=== PATIENT | male | born 1955 | race Caucasian/White ===

== ENCOUNTER 2018-09-11 12:39 | Inpatient (IN) | payer OTHER, MEDICAID ==
[~2018-09-11] VITALS: Ht 182.9 cm; Wt 77.0 kg
[~2018-09-11 12:39] MED LIST: CLON.5 PO; DULO30CA2 PO; MIRT15 PO
[2018-09-11 14:01] LABS: BASOPHILS % (AUTO) 0.6 % (0.0-2.0); EOSINOPHILS % (AUTO) 2.3 % (1.0-6.0); HEMOGLOBIN 15.8 g/dL (13.5-17.5); LYMPHOCYTES # (AUTO) 1.9 K/uL (1.0-4.8); LYMPHOCYTES % (AUTO) 30.9 % (22.0-44.0); MEAN CORPUSCULAR HEMOGLOBIN 34.2 pg (26.0-34.0); MEAN CORPUSCULAR HGB CONC 33.6 G/dL (31.0-37.0); MEAN CORPUSCULAR VOLUME 102 fL (80-100); MONOCYTES # (AUTO) 0.6 K/uL (0.1-1.0); NEUTROPHILS # (AUTO) 3.5 K/uL (1.8-7.7); NEUTROPHILS % (AUTO) 56.2 % (40.0-70.0); PLATELET COUNT (AUTO) 197 K/uL (150-450); RED BLOOD CELL COUNT(AUTO) 4.62 MIL/uL (4.50-5.90)
[2018-09-11] MEDS ORDERED: LORazepam 1 MG TABLET PO ONE ×2 (14:15→20:00)
[2018-09-11 14:24] LABS: ANION GAP 13 mmol/L (8-16); CALCIUM, TOTAL 8.5 mg/dL (8.8-10.5); CARBON DIOXIDE 28 mmol/L (22-29); CHLORIDE 103 mmol/L (98-107); GLOMERULAR FILTR. RATE CALC > 60 mL/min (>60); GLUCOSE,RANDOM 76 mg/dL (70-110); POTASSIUM 3.5 mmol/L (3.5-5.1); SODIUM SERUM 144 mmol/L (136-145); UREA NITROGEN, BLOOD 11 mg/dL (7-18)
[2018-09-11 14:25] LABS: ALANINE AMINOTRANSFERASE 27 U/L (12-78); ALBUMIN 3.9 g/dL (3.4-5.0); ALKALINE PHOSPHATASE 67 U/L (46-116); ASPARTATE AMINOTRANSFERASE 39 U/L (15-37); BILIRUBIN,TOTAL 0.5 mg/dL (0.1-1.0); TOTAL PROTEIN, SERUM 7.9 g/dL (6.4-8.2)
[2018-09-11 17:02] LABS: PLATELET MORPHOLOGY COMMENT LARGE PLTS PRESENT
[2018-09-11 17:17] LABS: AMPHET/METH SCREEN,URINE NEGATIVE (NEGATIVE); BARBITURATE SCREEN, URINE NEGATIVE (NEGATIVE); BENZODIAZEPINES SCREEN,URINE NEGATIVE (NEGATIVE); CANNABINOID SCREEN,URINE NEGATIVE (NEGATIVE); COCAINE SCREEN,URINE NEGATIVE (NEGATIVE); METHADONE SCREEN, URINE NEGATIVE (NEGATIVE); OPIATE SCREEN,URINE NEGATIVE (NEGATIVE)
[2018-09-11 17:19] LABS: PHENCYCLIDINE SCREEN,URINE NEGATIVE (NEGATIVE)
[2018-09-11] MEDS ORDERED: GuaiFENesin/D-METHORPHAN [SUGAR-FREE] 200-20MG/10 ML SYRUP UDCUP PO PRN (20:15)
[2018-09-11] MEDS ORDERED: HydrOXYzine PAMOATE 50 MG CAPSULE PO PRN (20:15)
[2018-09-11] MEDS ORDERED: LOPERAMIDE HCL 2 MG CAPSULE PO PRN (20:15)
[2018-09-11] MEDS ORDERED: LORazepam 2 MG TABLET PO PRN (20:15)
[2018-09-11] MEDS ORDERED: CYANOCOBALAMIN 1,000 MCG/ML VIAL IM ONE (23:00)
[2018-09-12] VITALS (12 sets, daily range): BP systolic 114–142; BP diastolic 61–94
[2018-09-12] MEDS ORDERED: GuaiFENesin/D-METHORPHAN [SUGAR-FREE] 200-20MG/10 ML SYRUP UDCUP PO PRN (06:45)
[2018-09-12] MEDS ORDERED: LOPERAMIDE HCL 2 MG CAPSULE PO PRN (06:45)
[2018-09-12] MEDS ORDERED: PETROLATUM,WHITE 71 GM JELLY TP PRN (06:45)
[2018-09-12] MEDS ORDERED: MAG HYDROX/AL HYDROX/SIMETH ES 30 ML SUSPENSION UDCUP PO PRN (06:45)
[2018-09-12] MEDS ORDERED: ACETAMINOPHEN 325 MG TABLET PO PRN (06:45)
[2018-09-12] MEDS ORDERED: MAGNESIUM HYDROXIDE SUSPENSION 30 ML UDCUP PO PRN (06:45)
[2018-09-12] MEDS ORDERED: DOCUSATE SODIUM 100 MG CAPSULE PO PRN (06:45)
[2018-09-12] MEDS ORDERED: CloNIDine HCL 0.1 MG TABLET PO PRN (06:45)
[2018-09-12] MEDS ORDERED: LORazepam 2 MG TABLET PO PRN (07:00)
[2018-09-12 07:06] LABS: CHOL/HDL RATIO 1.4 (4.2-7.3)
[2018-09-12] MEDS: FOLIC ACID 1 MG TABLET PO SCH (08:42)
[2018-09-12] MEDS: THIAMINE HCL 100 MG TABLET PO SCH ×2 (08:42→16:12)
[2018-09-12] MEDS: MULTIVITAMINS WITH MINERALS, THERAPEUTIC TABLET PO SCH (08:44)
[2018-09-12] MEDS: LORazepam 2 MG TABLET PO SCH ×4 (08:44→20:34)
[2018-09-13] VITALS (11 sets, daily range): BP systolic 120–139; BP diastolic 71–99
[2018-09-13] MEDS: THIAMINE HCL 100 MG TABLET PO SCH ×2 (09:06→16:36)
[2018-09-13] MEDS: FOLIC ACID 1 MG TABLET PO SCH (09:06)
[2018-09-13] MEDS: LORazepam 2 MG TABLET PO SCH ×4 (09:06→20:13)
[2018-09-13] MEDS: DULoxetine HCL 20 MG CAPSULE PO SCH (09:06)
[2018-09-13] MEDS: MULTIVITAMINS WITH MINERALS, THERAPEUTIC TABLET PO SCH (09:06)
[2018-09-13] MEDS: ONDANSETRON HCL 4 MG TABLET PO PRN (12:28)
[2018-09-13] MEDS: NICOTINE 14 MG/24 HOUR PATCH TD PRN (16:42)
[2018-09-14 06:49] VITALS: BP 125/87
[2018-09-14] MEDS ORDERED: LORazepam 1 MG TABLET PO PRN (07:00)
[2018-09-14 08:00] VITALS: BP 118/95
[2018-09-14] MEDS: LORazepam 1 MG TABLET PO SCH ×4 (08:41→21:30)
[2018-09-14] MEDS: FOLIC ACID 1 MG TABLET PO SCH (08:42)
[2018-09-14] MEDS: THIAMINE HCL 100 MG TABLET PO SCH ×2 (08:42→17:07)
[2018-09-14] MEDS: MULTIVITAMINS WITH MINERALS, THERAPEUTIC TABLET PO SCH (08:42)
[2018-09-14] MEDS: DULoxetine HCL 20 MG CAPSULE PO SCH (08:42)
[2018-09-14 09:00] VITALS: BP 120/77
[2018-09-14 17:00] VITALS: BP 142/98
[2018-09-15 06:22] VITALS: BP 104/60
[2018-09-15 08:00] VITALS: BP 116/65
[2018-09-15] MEDS: MULTIVITAMINS WITH MINERALS, THERAPEUTIC TABLET PO SCH (08:49)
[2018-09-15] MEDS: DULoxetine HCL 20 MG CAPSULE PO SCH (08:49)
[2018-09-15] MEDS: FOLIC ACID 1 MG TABLET PO SCH (08:49)
[2018-09-15] MEDS: LORazepam 1 MG TABLET PO PRN (08:49)
[2018-09-15] MEDS: THIAMINE HCL 100 MG TABLET PO SCH ×2 (08:49→16:15)
[2018-09-15 09:00] VITALS: BP 140/62
[2018-09-15] MEDS: NICOTINE 14 MG/24 HOUR PATCH TD PRN (09:26)
[2018-09-15 16:43] VITALS: BP 147/90
[2018-09-15 16:45] VITALS: BP 147/90
[2018-09-16] MEDS: LORazepam 1 MG TABLET PO PRN (00:47)
[2018-09-16 08:02] VITALS: BP 148/99
[2018-09-16 08:03] VITALS: BP 148/99
[2018-09-16] MEDS: MULTIVITAMINS WITH MINERALS, THERAPEUTIC TABLET PO SCH (08:39)
[2018-09-16] MEDS: FOLIC ACID 1 MG TABLET PO SCH (08:39)
[2018-09-16] MEDS: THIAMINE HCL 100 MG TABLET PO SCH ×2 (08:39→16:33)
[2018-09-16] MEDS: DULoxetine HCL 20 MG CAPSULE PO SCH (08:39)
[2018-09-16 08:44] VITALS: BP 148/99
[2018-09-16] MEDS: ONDANSETRON HCL 4 MG TABLET PO PRN (08:44)
[2018-09-16] MEDS: IBUPROFEN 400 MG TABLET PO PRN (08:44)
[2018-09-16] MEDS: NICOTINE 14 MG/24 HOUR PATCH TD PRN (08:45)
[2018-09-16] MEDS: ALBUTEROL SULFATE HFA 90 MCG/PUFF 8 GM INHALER IH PRN (09:23)
[2018-09-16] MEDS: CARBAMIDE PEROXIDE 6.5% 15 ML OTIC SOLUTION AD SCH (16:36)
[2018-09-16] MEDS: LORazepam 2 MG TABLET PO PRN (17:18)
[2018-09-16 18:48] VITALS: BP 127/83
[2018-09-16 18:50] VITALS: BP 127/83
[2018-09-17] MEDS: LORazepam 2 MG TABLET PO PRN ×3 (02:11→22:35)
[2018-09-17] MEDS: MULTIVITAMINS WITH MINERALS, THERAPEUTIC TABLET PO SCH (08:31)
[2018-09-17] MEDS: THIAMINE HCL 100 MG TABLET PO SCH ×2 (08:32→16:07)
[2018-09-17] MEDS: FOLIC ACID 1 MG TABLET PO SCH (08:33)
[2018-09-17] MEDS: DULoxetine HCL 20 MG CAPSULE PO SCH (08:33)
[2018-09-17] MEDS: CARBAMIDE PEROXIDE 6.5% 15 ML OTIC SOLUTION AD SCH ×2 (08:38→17:12)
[2018-09-17 11:45] VITALS: BP 133/98
[2018-09-17 16:56] VITALS: BP 130/90
[2018-09-18] MEDS: DULoxetine HCL 20 MG CAPSULE PO SCH (08:58)
[2018-09-18] MEDS: FOLIC ACID 1 MG TABLET PO SCH (08:58)
[2018-09-18] MEDS: THIAMINE HCL 100 MG TABLET PO SCH ×2 (08:58→16:08)
[2018-09-18] MEDS: MULTIVITAMINS WITH MINERALS, THERAPEUTIC TABLET PO SCH (08:58)
[2018-09-18] MEDS: LORazepam 2 MG TABLET PO PRN ×2 (09:00→16:08)
[2018-09-18] MEDS: CARBAMIDE PEROXIDE 6.5% 15 ML OTIC SOLUTION AD SCH ×2 (09:02→16:10)
[2018-09-18 10:44] VITALS: BP 125/79
[2018-09-18 18:09] VITALS: BP 131/89
[2018-09-19 02:00] VITALS: BP 134/86
[2018-09-19] MEDS: LORazepam 2 MG TABLET PO PRN (02:02)
[2018-09-19] MEDS: IBUPROFEN 400 MG TABLET PO PRN ×2 (02:02→20:23)
[2018-09-19] MEDS: NICOTINE 14 MG/24 HOUR PATCH TD PRN (06:56)
[2018-09-19] MEDS: MULTIVITAMINS WITH MINERALS, THERAPEUTIC TABLET PO SCH (08:25)
[2018-09-19] MEDS: THIAMINE HCL 100 MG TABLET PO SCH ×2 (08:25→16:15)
[2018-09-19] MEDS: FOLIC ACID 1 MG TABLET PO SCH (08:25)
[2018-09-19] MEDS: DULoxetine HCL 20 MG CAPSULE PO SCH (08:25)
[2018-09-19] MEDS: CARBAMIDE PEROXIDE 6.5% 15 ML OTIC SOLUTION AD SCH ×2 (09:00→16:19)
[2018-09-19 11:28] VITALS: BP 132/67
[2018-09-19 16:20] VITALS: BP 151/85
[2018-09-19] MEDS: ALBUTEROL SULFATE HFA 90 MCG/PUFF 8 GM INHALER IH PRN (16:21)
[2018-09-19 20:23] VITALS: BP 134/82
[2018-09-20 02:15] VITALS: BP 129/98
[2018-09-20] MEDS: LORazepam 2 MG TABLET PO PRN ×4 (02:16→22:24)
[2018-09-20] MEDS: DULoxetine HCL 20 MG CAPSULE PO SCH (08:08)
[2018-09-20] MEDS: FOLIC ACID 1 MG TABLET PO SCH (08:08)
[2018-09-20] MEDS: THIAMINE HCL 100 MG TABLET PO SCH ×2 (08:08→16:03)
[2018-09-20] MEDS: MULTIVITAMINS WITH MINERALS, THERAPEUTIC TABLET PO SCH (08:08)
[2018-09-20 09:08] VITALS: BP 152/95
[2018-09-20] MEDS: CARBAMIDE PEROXIDE 6.5% 15 ML OTIC SOLUTION AD SCH (09:14)
[2018-09-20 16:04] VITALS: BP 132/70
[2018-09-20] MEDS: IBUPROFEN 400 MG TABLET PO PRN (16:04)
[2018-09-20 17:04] VITALS: BP 135/74
[2018-09-21] MEDS: MULTIVITAMINS WITH MINERALS, THERAPEUTIC TABLET PO SCH (08:42)
[2018-09-21] MEDS: THIAMINE HCL 100 MG TABLET PO SCH ×2 (08:42→16:01)
[2018-09-21] MEDS: FOLIC ACID 1 MG TABLET PO SCH (08:42)
[2018-09-21] MEDS: DULoxetine HCL 20 MG CAPSULE PO SCH (08:42)
[2018-09-21] MEDS: LORazepam 2 MG TABLET PO PRN ×2 (08:47→16:00)
[2018-09-21 10:46] VITALS: BP 135/95
[2018-09-21] MEDS: IBUPROFEN 400 MG TABLET PO PRN (16:00)
[2018-09-21 16:02] VITALS: BP 142/101
[2018-09-21] MEDS ORDERED: DULO20CA17 PO (18:02)
[2018-09-21] MEDS ORDERED: MULT1CAP36 PO (18:06)
[2018-09-21] MEDS ORDERED: ALBU8HFA IH (18:09)
== END 2018-09-21 18:30 | disposition home or self-care (01) | DRG 885 ==
LOC: EMS 12:44 → 3EX 22:25
PROVIDERS: ADMIT Psychiatry & Neurology Psychiatry; ATTEND Psychiatry & Neurology Psychiatry
DX: F33.2 Major depressive disorder, recurrent severe without psychotic features (principal); R45.851 Suicidal ideations; F10.20 Alcohol dependence, uncomplicated; F17.200 Nicotine dependence, unspecified, uncomplicated; Z71.6 Tobacco abuse counseling; F41.9 Anxiety disorder, unspecified; G47.33 Obstructive sleep apnea (adult) (pediatric); M19.90 Unspecified osteoarthritis, unspecified site; Z59.0 Homelessness; Z81.8 Family history of other mental and behavioral disorders; Z87.442 Personal history of urinary calculi; Z91.14 Patient's other noncompliance with medication regimen; Z23 Encounter for immunization; Z79.899 Other long term (current) drug therapy
CPT/HCPCS: 80074; 90686; G0378; G0480; J3420; J3535; Q0162

== ENCOUNTER 2019-03-02 19:43 | Emergency (ER) | payer OTHER, MEDICAID ==
[~2019-03-02] VITALS: Ht 182.9 cm; Wt 81.8 kg
[~2019-03-02 19:43] MED LIST changes: -CLON.5 PO; +DULO20CA18 PO; -DULO30CA2 PO; -MIRT15 PO; +MULT1CAP36 PO
[2019-03-02 23:07] LABS: AMPHET/METH SCREEN,URINE POSITIVE (NEGATIVE); BARBITURATE SCREEN, URINE NEGATIVE (NEGATIVE); BENZODIAZEPINES SCREEN,URINE NEGATIVE (NEGATIVE); CANNABINOID SCREEN,URINE NEGATIVE (NEGATIVE); COCAINE SCREEN,URINE NEGATIVE (NEGATIVE); METHADONE SCREEN, URINE NEGATIVE (NEGATIVE); OPIATE SCREEN,URINE NEGATIVE (NEGATIVE)
[2019-03-02 23:11] LABS: PHENCYCLIDINE SCREEN,URINE NEGATIVE (NEGATIVE)
[2019-03-02 23:28] LABS: CALCIUM, TOTAL 8.1 mg/dL (8.8-10.5); CARBON DIOXIDE 26 mmol/L (22-29); CHLORIDE 103 mmol/L (98-107); CREATININE 0.72 mg/dL (0.60-1.30); GLOMERULAR FILTR. RATE CALC > 60 mL/min (>60); GLUCOSE,RANDOM 85 mg/dL (70-110); UREA NITROGEN, BLOOD 12 mg/dL (7-18)
[2019-03-02 23:31] LABS: BASOPHILS % (AUTO) 1.4 % (0.0-2.0); EOSINOPHILS % (AUTO) 3.2 % (1.0-6.0); HEMATOCRIT 43.9 % (41-53); HEMOGLOBIN 14.6 g/dL (13.5-17.5); LYMPHOCYTES # (AUTO) 2.1 K/uL (1.0-4.8); LYMPHOCYTES % (AUTO) 51.4 % (22.0-44.0); MEAN CORPUSCULAR HEMOGLOBIN 33.5 pg (26.0-34.0); MEAN CORPUSCULAR HGB CONC 33.3 G/dL (31.0-37.0); MEAN CORPUSCULAR VOLUME 101 fL (80-100); MONOCYTES # (AUTO) 0.6 K/uL (0.1-1.0); MONOCYTES % (AUTO) 15.4 % (2.0-9.0); NEUTROPHILS # (AUTO) 1.2 K/uL (1.8-7.7); NEUTROPHILS % (AUTO) 28.6 % (40.0-70.0); PLATELET COUNT (AUTO) 141 K/uL (150-450); RED BLOOD CELL COUNT(AUTO) 4.36 MIL/uL (4.50-5.90); RED CELL DISTRIBUTION WIDTH 13.9 % (11.5-14.5)
[2019-03-02 23:35] LABS: ALANINE AMINOTRANSFERASE 21 U/L (12-78); ALBUMIN 3.2 g/dL (3.4-5.0); ALKALINE PHOSPHATASE 65 U/L (46-116); ANION GAP 11 mmol/L (8-16); ASPARTATE AMINOTRANSFERASE 42 U/L (15-37); BILIRUBIN,TOTAL 0.3 mg/dL (0.1-1.0); SODIUM SERUM 140 mmol/L (136-145); TOTAL PROTEIN, SERUM 6.7 g/dL (6.4-8.2)
[2019-03-03 00:30] LABS: PLATELET MORPHOLOGY COMMENT LARGE PLTS PRESENT
[2019-03-03 04:15] VITALS: BP 119/66
== END 2019-03-03 05:24 | disposition home or self-care (01) ==
LOC: EMS 19:45
DX: F32.9 Major depressive disorder, single episode, unspecified (principal); F19.20 Other psychoactive substance dependence, uncomplicated; F10.10 Alcohol abuse, uncomplicated; F41.9 Anxiety disorder, unspecified; M19.90 Unspecified osteoarthritis, unspecified site; F17.210 Nicotine dependence, cigarettes, uncomplicated; Z59.0 Homelessness; Z88.8 Allergy status to other drugs, medicaments and biological substances; Z88.5 Allergy status to narcotic agent; Y90.7 Blood alcohol level of 200-239 mg/100 ml
CPT/HCPCS: 36415; 80053; 80307; 85025; 99285; G0480

== ENCOUNTER 2020-09-15 20:28 | Inpatient (IN) | payer MEDICAID, OTHER ==
[~2020-09-15] VITALS: Ht 182.9 cm; Wt 83.5 kg
[2020-09-15] MEDS ORDERED: PERTUSS(ACELL),DIPH,TET VAC/PF 0.5 ML VIAL IM ONE (22:30)
[2020-09-15 23:31] LABS: BASOPHILS % (AUTO) 0.7 % (0.0-2.0); EOSINOPHILS % (AUTO) 4.2 % (1.0-6.0); HEMOGLOBIN 11.7 g/dL (13.5-17.5); LYMPHOCYTES # (AUTO) 1.6 K/uL (1.0-4.8); LYMPHOCYTES % (AUTO) 29.7 % (22.0-44.0); MEAN CORPUSCULAR HEMOGLOBIN 35.6 pg (26.0-34.0); MEAN CORPUSCULAR HGB CONC 33.3 G/dL (31.0-37.0); MEAN CORPUSCULAR VOLUME 107 fL (80-100); MONOCYTES # (AUTO) 0.6 K/uL (0.1-1.0); MONOCYTES % (AUTO) 10.7 % (2.0-9.0); NEUTROPHILS # (AUTO) 2.9 K/uL (1.8-7.7); NEUTROPHILS % (AUTO) 54.7 % (40.0-70.0); PLATELET COUNT (AUTO) 161 K/uL (150-450); RED BLOOD CELL COUNT(AUTO) 3.28 MIL/uL (4.50-5.90); RED CELL DISTRIBUTION WIDTH 13.9 % (11.5-14.5)
[2020-09-15 23:44] LABS: ANION GAP 5 mmol/L (8-16); CALCIUM, TOTAL 8.5 mg/dL (8.8-10.5); CARBON DIOXIDE 31 mmol/L (22-29); CHLORIDE 108 mmol/L (98-107); CREATININE 0.74 mg/dL (0.60-1.30); GLOMERULAR FILTR. RATE CALC > 60 mL/min (>60); GLUCOSE,RANDOM 87 mg/dL (70-110); POTASSIUM 3.9 mmol/L (3.5-5.1); SODIUM SERUM 144 mmol/L (136-145); UREA NITROGEN, BLOOD 20 mg/dL (7-18)
[2020-09-15 23:50] LABS: ALANINE AMINOTRANSFERASE 35 U/L (12-78); ALBUMIN 2.6 g/dL (3.4-5.0); ALKALINE PHOSPHATASE 69 U/L (46-116); ASPARTATE AMINOTRANSFERASE 61 U/L (15-37); BILIRUBIN,TOTAL 0.3 mg/dL (0.1-1.0); CREATINE KINASE, TOTAL ONLY 53 U/L (39-308)
[2020-09-16] VITALS (7 sets, daily range): BP systolic 140–160; BP diastolic 73–109
[2020-09-16 00:25] LABS: B-TYPE NATRIURETIC PEPTIDE 106 pg/mL (0-100)
[2020-09-16] MEDS ORDERED: CEPHALEXIN MONOHYDRATE 500 MG CAPSULE PO ONE (01:15)
[2020-09-16] MEDS ORDERED: SULFAMETHOX/TRIMETH DS 800-160 MG/TABLET PO ONE (01:15)
[2020-09-16] MEDS ORDERED: HALOPERIDOL 5 MG TABLET PO PRN (03:30)
[2020-09-16 04:43] LABS: COVID AG,FIA SOURCE NASOPHARYNGEAL
[2020-09-16] MEDS ORDERED: INFLUENZA VIRUS VACCINE QVS 2020-21 (6MO+)/PF 60 MCG/0.5 ML SYRINGE IM ONE (12:45)
[2020-09-16] MEDS ORDERED: ONDANSETRON HCL 4 MG TABLET PO PRN (14:15)
[2020-09-16] MEDS ORDERED: ACETAMINOPHEN 325 MG TABLET PO PRN (14:15)
[2020-09-16] MEDS ORDERED: DOCUSATE SODIUM 100 MG CAPSULE PO PRN (14:15)
[2020-09-16] MEDS ORDERED: MAG HYDROX/AL HYDROX/SIMETH ES 30 ML SUSPENSION UDCUP PO PRN (14:15)
[2020-09-16] MEDS ORDERED: IBUPROFEN 400 MG TABLET PO PRN (14:15)
[2020-09-16] MEDS ORDERED: ALBUTEROL SULFATE HFA 90 MCG/PUFF 8 GM INHALER IH PRN (14:15)
[2020-09-16] MEDS ORDERED: NICOTINE 14 MG/24 HOUR PATCH TD PRN (14:15)
[2020-09-16] MEDS ORDERED: LOPERAMIDE HCL 2 MG CAPSULE PO PRN (14:15)
[2020-09-16] MEDS ORDERED: GuaiFENesin/D-METHORPHAN [SUGAR-FREE] 200-20MG/10 ML SYRUP UDCUP PO PRN (14:15)
[2020-09-16] MEDS ORDERED: MAGNESIUM HYDROXIDE SUSPENSION 30 ML UDCUP PO PRN (14:15)
[2020-09-16] MEDS ORDERED: PETROLATUM,WHITE 28 GM JELLY TP PRN (14:15)
[2020-09-16] MEDS ORDERED: CloNIDine HCL 0.1 MG TABLET PO PRN (14:15)
[2020-09-16] MEDS: SULFAMETHOX/TRIMETH DS 800-160 MG/TABLET PO SCH (16:29)
[2020-09-16] MEDS: GABAPENTIN 300 MG CAPSULE PO SCH (16:29)
[2020-09-16] MEDS: CEPHALEXIN MONOHYDRATE 500 MG CAPSULE PO SCH (18:24)
[2020-09-16] MEDS: ChlordiazePOXIDE HCL 25 MG CAPSULE PO PRN (21:44)
[2020-09-17] VITALS (7 sets, daily range): BP systolic 118–151; BP diastolic 61–99
[2020-09-17] MEDS: LORazepam 2 MG TABLET PO PRN (01:14)
[2020-09-17] MEDS: ChlordiazePOXIDE HCL 25 MG CAPSULE PO PRN (01:19)
[2020-09-17] MEDS: CEPHALEXIN MONOHYDRATE 500 MG CAPSULE PO SCH ×5 (06:01→23:29)
[2020-09-17 06:55] LABS: CHOL/HDL RATIO 2.4 (4.2-7.3)
[2020-09-17] MEDS ORDERED: ChlordiazePOXIDE HCL 25 MG CAPSULE PO PRN (07:00)
[2020-09-17] MEDS: GABAPENTIN 300 MG CAPSULE PO SCH ×2 (08:59→16:26)
[2020-09-17] MEDS: ChlordiazePOXIDE HCL 25 MG CAPSULE PO SCH ×4 (08:59→20:24)
[2020-09-17] MEDS: DULoxetine HCL 60 MG CAPSULE PO SCH (09:00)
[2020-09-17] MEDS: SULFAMETHOX/TRIMETH DS 800-160 MG/TABLET PO SCH ×2 (09:06→16:26)
[2020-09-17] MEDS ORDERED: ALBUTEROL SULFATE HFA 90 MCG/PUFF 8 GM INHALER IH PRN (13:45)
[2020-09-17] MEDS ORDERED: DOCUSATE SODIUM 100 MG CAPSULE PO PRN (13:45)
[2020-09-17] MEDS ORDERED: GuaiFENesin/D-METHORPHAN [SUGAR-FREE] 200-20MG/10 ML SYRUP UDCUP PO PRN (13:45)
[2020-09-17] MEDS ORDERED: LOPERAMIDE HCL 2 MG CAPSULE PO PRN (13:45)
[2020-09-17] MEDS ORDERED: PETROLATUM,WHITE 28 GM JELLY TP PRN (13:45)
[2020-09-17] MEDS ORDERED: ACETAMINOPHEN 325 MG TABLET PO PRN (13:45)
[2020-09-17] MEDS ORDERED: IBUPROFEN 400 MG TABLET PO PRN (13:45)
[2020-09-17] MEDS ORDERED: MAGNESIUM HYDROXIDE SUSPENSION 30 ML UDCUP PO PRN (13:45)
[2020-09-17] MEDS ORDERED: CloNIDine HCL 0.1 MG TABLET PO PRN (13:45)
[2020-09-17] MEDS ORDERED: MAG HYDROX/AL HYDROX/SIMETH ES 30 ML SUSPENSION UDCUP PO PRN (13:45)
[2020-09-18 03:21] VITALS: BP 118/78
[2020-09-18] MEDS: CEPHALEXIN MONOHYDRATE 500 MG CAPSULE PO SCH ×4 (06:14→23:58)
[2020-09-18] MEDS: GABAPENTIN 300 MG CAPSULE PO SCH ×2 (08:26→16:30)
[2020-09-18] MEDS: ChlordiazePOXIDE HCL 25 MG CAPSULE PO SCH ×4 (08:26→20:16)
[2020-09-18] MEDS: SULFAMETHOX/TRIMETH DS 800-160 MG/TABLET PO SCH ×2 (08:26→16:30)
[2020-09-18] MEDS: DULoxetine HCL 60 MG CAPSULE PO SCH (08:26)
[2020-09-18 08:30] VITALS: BP 129/94
[2020-09-18 16:31] VITALS: BP 137/88
[2020-09-18 16:34] VITALS: BP 137/63
[2020-09-18] MEDS: FERROUS SULFATE 325 MG EC TABLET PO SCH (17:03)
[2020-09-18] MEDS: NICOTINE 14 MG/24 HOUR PATCH TD PRN (17:06)
[2020-09-19] MEDS: CEPHALEXIN MONOHYDRATE 500 MG CAPSULE PO SCH ×4 (06:00→23:58)
[2020-09-19] MEDS: FERROUS SULFATE 325 MG EC TABLET PO SCH ×3 (06:51→17:01)
[2020-09-19] MEDS ORDERED: ChlordiazePOXIDE HCL 10 MG CAPSULE PO PRN (07:00)
[2020-09-19 08:00] VITALS: BP 123/83
[2020-09-19 08:53] VITALS: BP 123/83
[2020-09-19] MEDS: GABAPENTIN 300 MG CAPSULE PO SCH ×2 (08:54→17:01)
[2020-09-19] MEDS: SULFAMETHOX/TRIMETH DS 800-160 MG/TABLET PO SCH ×2 (08:54→17:03)
[2020-09-19] MEDS: DULoxetine HCL 60 MG CAPSULE PO SCH (08:54)
[2020-09-19] MEDS: ChlordiazePOXIDE HCL 10 MG CAPSULE PO SCH ×4 (08:54→20:25)
[2020-09-19] MEDS: ONDANSETRON HCL 4 MG TABLET PO PRN (10:12)
[2020-09-19 16:58] VITALS: BP 129/82
[2020-09-19 19:23] VITALS: BP 129/82
[2020-09-20] MEDS: ONDANSETRON HCL 4 MG TABLET PO PRN (00:07)
[2020-09-20 00:26] VITALS: BP 99/54
[2020-09-20] MEDS: CEPHALEXIN MONOHYDRATE 500 MG CAPSULE PO SCH ×3 (06:09→16:39)
[2020-09-20] MEDS: FERROUS SULFATE 325 MG EC TABLET PO SCH ×3 (06:58→16:39)
[2020-09-20] MEDS ORDERED: ChlordiazePOXIDE HCL 10 MG CAPSULE PO PRN (07:00)
[2020-09-20 09:00] VITALS: BP 100/78
[2020-09-20] MEDS: GABAPENTIN 300 MG CAPSULE PO SCH ×2 (09:35→16:39)
[2020-09-20] MEDS: SULFAMETHOX/TRIMETH DS 800-160 MG/TABLET PO SCH ×2 (09:35→16:39)
[2020-09-20] MEDS: DULoxetine HCL 30 MG CAPSULE PO SCH (09:36)
[2020-09-20 09:41] VITALS: BP 120/71
[2020-09-20 10:41] VITALS: BP 129/89
[2020-09-20 16:00] VITALS: BP 127/77
[2020-09-21] MEDS: CEPHALEXIN MONOHYDRATE 500 MG CAPSULE PO SCH ×5 (00:32→23:42)
[2020-09-21 02:56] VITALS: BP 134/67
[2020-09-21] MEDS: LORazepam 2 MG TABLET PO PRN ×2 (02:58→11:51)
[2020-09-21] MEDS: FERROUS SULFATE 325 MG EC TABLET PO SCH ×3 (06:33→16:39)
[2020-09-21] MEDS: SULFAMETHOX/TRIMETH DS 800-160 MG/TABLET PO SCH ×2 (09:15→16:39)
[2020-09-21] MEDS: GABAPENTIN 300 MG CAPSULE PO SCH ×2 (09:15→16:39)
[2020-09-21] MEDS: DULoxetine HCL 30 MG CAPSULE PO SCH (09:15)
[2020-09-21 09:16] VITALS: BP 112/69
[2020-09-21 16:23] VITALS: BP 109/61
[2020-09-22] MEDS: ZOLPIDEM TARTRATE 10 MG TABLET PO PRN ×2 (02:59→23:45)
[2020-09-22] MEDS: NICOTINE 14 MG/24 HOUR PATCH TD PRN (03:08)
[2020-09-22] MEDS: LORazepam 2 MG TABLET PO PRN (06:08)
[2020-09-22] MEDS: CEPHALEXIN MONOHYDRATE 500 MG CAPSULE PO SCH ×4 (06:39→23:45)
[2020-09-22] MEDS: FERROUS SULFATE 325 MG EC TABLET PO SCH ×3 (06:39→17:52)
[2020-09-22] MEDS: GABAPENTIN 300 MG CAPSULE PO SCH ×2 (09:35→17:52)
[2020-09-22] MEDS: DULoxetine HCL 30 MG CAPSULE PO SCH (09:35)
[2020-09-22] MEDS: SULFAMETHOX/TRIMETH DS 800-160 MG/TABLET PO SCH ×2 (09:35→17:52)
[2020-09-22 09:54] VITALS: BP 123/86
[2020-09-22 15:26] LABS: COVID AG,FIA SOURCE NASOPHARYNGEAL
[2020-09-23] MEDS: CEPHALEXIN MONOHYDRATE 500 MG CAPSULE PO SCH ×2 (06:07→12:44)
[2020-09-23] MEDS: FERROUS SULFATE 325 MG EC TABLET PO SCH ×3 (06:56→16:46)
[2020-09-23 08:20] VITALS: BP 126/72
[2020-09-23] MEDS: GABAPENTIN 300 MG CAPSULE PO SCH ×2 (08:20→16:46)
[2020-09-23] MEDS: DULoxetine HCL 30 MG CAPSULE PO SCH (08:20)
[2020-09-23] MEDS: SULFAMETHOX/TRIMETH DS 800-160 MG/TABLET PO SCH (08:20)
[2020-09-23 16:00] VITALS: BP 141/89
[2020-09-23] MEDS: HYDROCORTISONE 1% 30 GM OINTMENT TP SCH (16:47)
[2020-09-23] MEDS: LORazepam 2 MG TABLET PO PRN (21:50)
[2020-09-24] MEDS: FERROUS SULFATE 325 MG EC TABLET PO SCH ×3 (06:54→16:48)
[2020-09-24 08:45] VITALS: BP 106/77
[2020-09-24] MEDS: GABAPENTIN 300 MG CAPSULE PO SCH ×2 (08:51→16:48)
[2020-09-24] MEDS: DULoxetine HCL 30 MG CAPSULE PO SCH (08:51)
[2020-09-24] MEDS: HYDROCORTISONE 1% 30 GM OINTMENT TP SCH ×2 (08:56→16:48)
[2020-09-24] MEDS: NICOTINE 14 MG/24 HOUR PATCH TD PRN (15:16)
[2020-09-24 16:40] VITALS: BP 123/81
[2020-09-25] MEDS: ZOLPIDEM TARTRATE 10 MG TABLET PO PRN ×2 (00:10→23:08)
[2020-09-25] MEDS: LORazepam 2 MG TABLET PO PRN (00:11)
[2020-09-25 00:20] VITALS: BP 122/82
[2020-09-25] MEDS: FERROUS SULFATE 325 MG EC TABLET PO SCH ×3 (08:00→16:42)
[2020-09-25] MEDS: GABAPENTIN 300 MG CAPSULE PO SCH ×2 (08:00→16:11)
[2020-09-25] MEDS: HYDROCORTISONE 1% 30 GM OINTMENT TP SCH ×2 (08:00→16:12)
[2020-09-25] MEDS: DULoxetine HCL 30 MG CAPSULE PO SCH (08:00)
[2020-09-25 08:45] VITALS: BP 122/83
[2020-09-25 16:00] VITALS: BP 104/78
[2020-09-25] MEDS: NICOTINE 14 MG/24 HOUR PATCH TD PRN (16:14)
[2020-09-26 01:18] VITALS: BP 139/95
[2020-09-26] MEDS: FERROUS SULFATE 325 MG EC TABLET PO SCH ×3 (06:41→16:54)
[2020-09-26 08:25] VITALS: BP 114/63
[2020-09-26] MEDS: DULoxetine HCL 30 MG CAPSULE PO SCH (08:44)
[2020-09-26] MEDS: GABAPENTIN 300 MG CAPSULE PO SCH ×2 (08:44→16:54)
[2020-09-26] MEDS: MULTIVITAMINS WITH MINERALS, THERAPEUTIC TABLET PO SCH (08:44)
[2020-09-26] MEDS: HYDROCORTISONE 1% 30 GM OINTMENT TP SCH ×2 (09:00→16:55)
[2020-09-26 16:00] VITALS: BP 120/76
[2020-09-27] MEDS: LORazepam 2 MG TABLET PO PRN (03:32)
[2020-09-27 04:08] VITALS: BP 127/78
[2020-09-27] MEDS: FERROUS SULFATE 325 MG EC TABLET PO SCH (06:33)
[2020-09-27] MEDS: GABAPENTIN 300 MG CAPSULE PO SCH (07:42)
[2020-09-27] MEDS: DULoxetine HCL 30 MG CAPSULE PO SCH (07:42)
[2020-09-27] MEDS: MULTIVITAMINS WITH MINERALS, THERAPEUTIC TABLET PO SCH (07:42)
[2020-09-27] MEDS: HYDROCORTISONE 1% 30 GM OINTMENT TP SCH (07:46)
[2020-09-27] MEDS ORDERED: DULO30CA96 PO (08:42)
[2020-09-27] MEDS ORDERED: GABA-1181 PO (08:43)
[2020-09-27 09:11] VITALS: BP 115/79
== END 2020-09-27 10:05 | disposition short-term general hospital (02) | DRG 751 ==
LOC: EMS 20:28 → 3EI 09-16 03:29
PROVIDERS: ADMIT Psychiatry & Neurology Psychiatry; ATTEND Psychiatry & Neurology Psychiatry
DX: F33.2 Major depressive disorder, recurrent severe without psychotic features (principal); F15.10 Other stimulant abuse, uncomplicated; Z59.0 Homelessness; F41.9 Anxiety disorder, unspecified; M19.90 Unspecified osteoarthritis, unspecified site; Z87.442 Personal history of urinary calculi; Z88.5 Allergy status to narcotic agent; D64.9 Anemia, unspecified; G47.33 Obstructive sleep apnea (adult) (pediatric); B18.2 Chronic viral hepatitis C; F17.200 Nicotine dependence, unspecified, uncomplicated; F10.20 Alcohol dependence, uncomplicated; Z20.822 Contact with and (suspected) exposure to COVID-19
CPT/HCPCS: 87426; 90715; 99285; G0480; J3535; Q0162

== ENCOUNTER 2020-10-12 00:02 | Inpatient (IN) | payer MEDICAID, OTHER ==
[~2020-10-12] VITALS: Ht 182.9 cm; Wt 87.5 kg
[~2020-10-12 00:02] MED LIST changes: -DULO20CA18 PO; +DULO30CA96 PO; +GABA-1181 PO; -MULT1CAP36 PO
[2020-10-12 01:01] LABS: BASOPHILS % (AUTO) 0.5 % (0.0-2.0); EOSINOPHILS % (AUTO) 6.1 % (1.0-6.0); HEMATOCRIT 41.3 % (41-53); HEMOGLOBIN 13.8 g/dL (13.5-17.5); LYMPHOCYTES # (AUTO) 1.8 K/uL (1.0-4.8); LYMPHOCYTES % (AUTO) 32.9 % (22.0-44.0); MEAN CORPUSCULAR HGB CONC 33.5 G/dL (31.0-37.0); MEAN CORPUSCULAR VOLUME 105 fL (80-100); MONOCYTES # (AUTO) 0.4 K/uL (0.1-1.0); MONOCYTES % (AUTO) 7.3 % (2.0-9.0); NEUTROPHILS # (AUTO) 2.9 K/uL (1.8-7.7); NEUTROPHILS % (AUTO) 53.2 % (40.0-70.0); PLATELET COUNT (AUTO) 173 K/uL (150-450); RED BLOOD CELL COUNT(AUTO) 3.95 MIL/uL (4.50-5.90); RED CELL DISTRIBUTION WIDTH 13.2 % (11.5-14.5)
[2020-10-12 01:07] LABS: ANION GAP 4 mmol/L (8-16); CALCIUM, TOTAL 8.9 mg/dL (8.8-10.5); CARBON DIOXIDE 30 mmol/L (22-29); CHLORIDE 107 mmol/L (98-107); CREATININE 1.17 mg/dL (0.60-1.30); GLOMERULAR FILTR. RATE CALC > 60 mL/min (>60); GLUCOSE,RANDOM 92 mg/dL (70-110); POTASSIUM 4.8 mmol/L (3.5-5.1); SODIUM SERUM 141 mmol/L (136-145); UREA NITROGEN, BLOOD 18 mg/dL (7-18)
[2020-10-12 01:13] LABS: ALANINE AMINOTRANSFERASE 80 U/L (12-78); ALBUMIN 3.1 g/dL (3.4-5.0); ALKALINE PHOSPHATASE 47 U/L (46-116); ASPARTATE AMINOTRANSFERASE 65 U/L (15-37); BILIRUBIN,TOTAL 0.2 mg/dL (0.1-1.0); TOTAL PROTEIN, SERUM 7.2 g/dL (6.4-8.2)
[2020-10-12] MEDS ORDERED: LORazepam 2 MG/ML VIAL IVP ONE (01:30)
[2020-10-12] MEDS ORDERED: SODIUM CHLORIDE 0.9% 1,000 ML IV ONE (01:30)
[2020-10-12] MEDS ORDERED: HALOPERIDOL 5 MG TABLET PO PRN (02:00)
[2020-10-12 02:18] LABS: COVID AG,FIA SOURCE NASOPHARYNGEAL
[2020-10-12] MEDS ORDERED: DULO30CA96 PO (02:23)
[2020-10-12] MEDS ORDERED: GABA-1216 PO (02:23)
[2020-10-12] MEDS ORDERED: GABA-1181 PO (02:23)
[2020-10-12] MEDS ORDERED: DULO-8 PO (02:23)
[2020-10-12] MEDS ORDERED: OMEP1CAP24 PO (02:23)
[2020-10-12 04:48] LABS: APPEARANCE,URINE CLOUDY (CLEAR); BILIRUBIN,URINE NEGATIVE (NEGATIVE); GLUCOSE, URINE (UA) NEGATIVE (NEGATIVE); KETONES,URINE NEGATIVE (NEGATIVE); LEUKOCYTE ESTERASE ,URINE SMALL (NEGATIVE); NITRATE,URINE POSITIVE (NEGATIVE); OCCULT BLOOD,URINE LARGE (NEGATIVE); PROTEIN,URINE TRACE (NEGATIVE); UROBILINOGEN,URINE 0.2 mg/dL (<=1.0)
[2020-10-12 04:53] LABS: AMPHET/METH SCREEN,URINE NEGATIVE (NEGATIVE); BARBITURATE SCREEN, URINE NEGATIVE (NEGATIVE); BENZODIAZEPINES SCREEN,URINE POSITIVE (NEGATIVE); CANNABINOID SCREEN,URINE NEGATIVE (NEGATIVE); COCAINE SCREEN,URINE NEGATIVE (NEGATIVE); METHADONE SCREEN, URINE NEGATIVE (NEGATIVE); OPIATE SCREEN,URINE NEGATIVE (NEGATIVE)
[2020-10-12 04:55] LABS: PHENCYCLIDINE SCREEN,URINE NEGATIVE (NEGATIVE)
[2020-10-12 04:59] LABS: BACTERIA,URINE Many /HPF (None Seen); RBC,URINE 51-100 /HPF (0-2); WBC,URINE 51-100 /HPF (0-5)
[2020-10-12 09:03] VITALS: BP 108/79
[2020-10-12] MEDS: LORazepam 2 MG TABLET PO PRN (10:24)
[2020-10-12] MEDS: TRIAMCINOLONE 0.1% 15 GM OINTMENT TP SCH ×4 (11:30→22:33)
[2020-10-12] MEDS ORDERED: ONDANSETRON HCL 4 MG TABLET PO PRN (11:30)
[2020-10-12] MEDS ORDERED: DOCUSATE SODIUM 100 MG CAPSULE PO PRN (11:30)
[2020-10-12] MEDS ORDERED: OMEPRAZOLE 20 MG CAPSULE PO PRN (11:30)
[2020-10-12] MEDS ORDERED: LOPERAMIDE HCL 2 MG CAPSULE PO PRN (11:30)
[2020-10-12] MEDS ORDERED: MAG HYDROX/AL HYDROX/SIMETH ES 30 ML SUSPENSION UDCUP PO PRN (11:30)
[2020-10-12] MEDS ORDERED: ALBUTEROL SULFATE HFA 90 MCG/PUFF 8 GM INHALER IH PRN (11:30)
[2020-10-12] MEDS ORDERED: PETROLATUM,WHITE 28 GM JELLY TP PRN (11:30)
[2020-10-12] MEDS ORDERED: BACITRACIN 28 GM OINTMENT TP PRN (11:30)
[2020-10-12] MEDS ORDERED: ACETAMINOPHEN 325 MG TABLET PO PRN (11:30)
[2020-10-12] MEDS ORDERED: MAGNESIUM HYDROXIDE SUSPENSION 30 ML UDCUP PO PRN (11:30)
[2020-10-12] MEDS ORDERED: CloNIDine HCL 0.1 MG TABLET PO PRN (11:30)
[2020-10-12] MEDS ORDERED: BENZOCAINE/MENTHOL LOZENGE PO PRN (11:30)
[2020-10-12 11:32] VITALS: BP 108/79
[2020-10-12 11:45] VITALS: BP 130/87
[2020-10-12] MEDS ORDERED: INFLUENZA VIRUS VACCINE QVS 2020-21 (6MO+)/PF 60 MCG/0.5 ML SYRINGE IM ONE (11:45)
[2020-10-12 16:26] VITALS: BP 136/82
[2020-10-12] MEDS: CEPHALEXIN MONOHYDRATE 500 MG CAPSULE PO SCH (16:31)
[2020-10-12 18:45] VITALS: BP 139/74
[2020-10-13] VITALS (8 sets, daily range): BP systolic 113–139; BP diastolic 71–83
[2020-10-13] MEDS: ZOLPIDEM TARTRATE 10 MG TABLET PO PRN (00:44)
[2020-10-13] MEDS: LORazepam 2 MG TABLET PO PRN (00:52)
[2020-10-13 08:18] LABS: CHOL/HDL RATIO 2.9 (4.2-7.3)
[2020-10-13] MEDS: DULoxetine HCL 60 MG CAPSULE PO SCH (09:50)
[2020-10-13] MEDS: CEPHALEXIN MONOHYDRATE 500 MG CAPSULE PO SCH ×2 (09:50→18:15)
[2020-10-13] MEDS: GABAPENTIN 300 MG CAPSULE PO SCH ×3 (09:51→18:15)
[2020-10-13] MEDS: TRIAMCINOLONE 0.1% 15 GM OINTMENT TP SCH ×4 (09:51→21:03)
[2020-10-14 06:24] VITALS: BP 129/81
[2020-10-14 06:25] VITALS: BP 129/81
[2020-10-14 08:00] VITALS: BP 115/74
[2020-10-14] MEDS: GABAPENTIN 300 MG CAPSULE PO SCH ×3 (08:30→17:43)
[2020-10-14] MEDS: CEPHALEXIN MONOHYDRATE 500 MG CAPSULE PO SCH ×2 (08:30→17:43)
[2020-10-14] MEDS: DULoxetine HCL 60 MG CAPSULE PO SCH (08:30)
[2020-10-14] MEDS: TRIAMCINOLONE 0.1% 15 GM OINTMENT TP SCH ×4 (08:31→20:53)
[2020-10-14] MEDS: LORazepam 2 MG TABLET PO PRN ×2 (08:35→17:43)
[2020-10-14 08:38] VITALS: BP 115/74
[2020-10-14 16:19] VITALS: BP 107/70
[2020-10-14 18:16] VITALS: BP 107/70
[2020-10-15 03:49] VITALS: BP 114/67
[2020-10-15 03:50] VITALS: BP 114/67
[2020-10-15 05:24] VITALS: BP 122/78
[2020-10-15 08:11] VITALS: BP 101/67
[2020-10-15 08:46] VITALS: BP 101/67
[2020-10-15] MEDS: GABAPENTIN 300 MG CAPSULE PO SCH ×3 (09:34→16:38)
[2020-10-15] MEDS: LORazepam 2 MG TABLET PO PRN ×2 (09:34→16:38)
[2020-10-15] MEDS: CEPHALEXIN MONOHYDRATE 500 MG CAPSULE PO SCH ×2 (09:34→16:38)
[2020-10-15] MEDS: TRIAMCINOLONE 0.1% 15 GM OINTMENT TP SCH ×4 (09:34→21:10)
[2020-10-15] MEDS: DULoxetine HCL 60 MG CAPSULE PO SCH (09:41)
[2020-10-15] MEDS: NICOTINE 21 MG/24 HOUR PATCH TD SCH (09:42)
[2020-10-15 16:10] VITALS: BP 118/72
[2020-10-16 01:00] VITALS: BP 121/68
[2020-10-16] MEDS: ZOLPIDEM TARTRATE 10 MG TABLET PO PRN (01:49)
[2020-10-16 01:50] VITALS: BP 113/79
[2020-10-16 02:37] VITALS: BP 113/79
[2020-10-16] MEDS: LORazepam 2 MG TABLET PO PRN (03:58)
[2020-10-16] MEDS: GABAPENTIN 300 MG CAPSULE PO SCH ×3 (08:25→17:10)
[2020-10-16] MEDS: DULoxetine HCL 60 MG CAPSULE PO SCH (08:25)
[2020-10-16] MEDS: NICOTINE 21 MG/24 HOUR PATCH TD SCH (08:26)
[2020-10-16] MEDS: TRIAMCINOLONE 0.1% 15 GM OINTMENT TP SCH ×4 (08:30→21:50)
[2020-10-16 08:40] VITALS: BP 111/81
[2020-10-16] MEDS: AMPICILLIN TRIHYDRATE 500 MG CAPSULE PO SCH ×2 (13:48→17:10)
[2020-10-16 16:16] VITALS: BP 113/74
[2020-10-16] MEDS: IBUPROFEN 600 MG TABLET PO PRN (17:25)
[2020-10-17 00:37] VITALS: BP 137/92
[2020-10-17 01:28] VITALS: BP 137/92
[2020-10-17 08:20] LABS: COVID AG,FIA SOURCE NASOPHARYNGEAL
[2020-10-17 08:22] VITALS: BP 128/80
[2020-10-17] MEDS: DULoxetine HCL 60 MG CAPSULE PO SCH (08:51)
[2020-10-17] MEDS: GABAPENTIN 300 MG CAPSULE PO SCH ×3 (08:51→16:20)
[2020-10-17] MEDS: NICOTINE 21 MG/24 HOUR PATCH TD SCH (08:53)
[2020-10-17] MEDS: AMPICILLIN TRIHYDRATE 500 MG CAPSULE PO SCH ×2 (08:58→16:20)
[2020-10-17] MEDS: TRIAMCINOLONE 0.1% 15 GM OINTMENT TP SCH ×4 (08:59→20:20)
[2020-10-17] MEDS: LORazepam 2 MG TABLET PO PRN ×2 (14:40→20:20)
[2020-10-17 17:22] VITALS: BP 122/82
[2020-10-18] MEDS: LORazepam 2 MG TABLET PO PRN ×2 (02:28→20:42)
[2020-10-18] MEDS: ZOLPIDEM TARTRATE 10 MG TABLET PO PRN (02:33)
[2020-10-18 03:46] VITALS: BP 116/76
[2020-10-18 08:35] VITALS: BP 120/87
[2020-10-18] MEDS: DULoxetine HCL 60 MG CAPSULE PO SCH (10:51)
[2020-10-18] MEDS: GABAPENTIN 300 MG CAPSULE PO SCH ×3 (10:51→17:07)
[2020-10-18] MEDS: AMPICILLIN TRIHYDRATE 500 MG CAPSULE PO SCH ×2 (10:51→17:07)
[2020-10-18] MEDS: NICOTINE 21 MG/24 HOUR PATCH TD SCH (10:52)
[2020-10-18] MEDS: TRIAMCINOLONE 0.1% 15 GM OINTMENT TP SCH ×4 (10:52→20:42)
[2020-10-18 16:11] VITALS: BP 139/95
[2020-10-19] MEDS: ZOLPIDEM TARTRATE 10 MG TABLET PO PRN ×2 (01:36→21:01)
[2020-10-19 04:37] VITALS: BP 116/74
[2020-10-19] MEDS: GABAPENTIN 300 MG CAPSULE PO SCH ×3 (08:38→16:46)
[2020-10-19] MEDS: DULoxetine HCL 60 MG CAPSULE PO SCH (08:38)
[2020-10-19] MEDS: THIAMINE 100 MG TABLET PO SCH (08:38)
[2020-10-19] MEDS: FOLIC ACID 1 MG TABLET PO SCH (08:38)
[2020-10-19] MEDS: MULTIVITAMINS WITH MINERALS, THERAPEUTIC TABLET PO SCH (08:38)
[2020-10-19] MEDS: AMPICILLIN TRIHYDRATE 500 MG CAPSULE PO SCH ×2 (08:38→16:46)
[2020-10-19 09:17] VITALS: BP 130/72
[2020-10-19] MEDS: NICOTINE 21 MG/24 HOUR PATCH TD SCH (09:45)
[2020-10-19] MEDS: TRIAMCINOLONE 0.1% 15 GM OINTMENT TP SCH ×4 (09:45→21:01)
[2020-10-19 16:57] VITALS: BP 102/66
[2020-10-20] MEDS: LORazepam 2 MG TABLET PO PRN ×4 (00:03→21:45)
[2020-10-20 00:08] VITALS: BP 113/86
[2020-10-20 08:24] VITALS: BP 128/89
[2020-10-20] MEDS: GABAPENTIN 300 MG CAPSULE PO SCH ×3 (08:35→17:05)
[2020-10-20] MEDS: FOLIC ACID 1 MG TABLET PO SCH (08:36)
[2020-10-20] MEDS: AMPICILLIN TRIHYDRATE 500 MG CAPSULE PO SCH ×2 (08:36→17:04)
[2020-10-20] MEDS: MULTIVITAMINS WITH MINERALS, THERAPEUTIC TABLET PO SCH (08:36)
[2020-10-20] MEDS: THIAMINE 100 MG TABLET PO SCH (08:36)
[2020-10-20] MEDS: DULoxetine HCL 60 MG CAPSULE PO SCH (08:36)
[2020-10-20] MEDS: TRIAMCINOLONE 0.1% 15 GM OINTMENT TP SCH ×4 (09:00→20:37)
[2020-10-20] MEDS: NICOTINE 21 MG/24 HOUR PATCH TD SCH (09:45)
[2020-10-20 17:00] VITALS: BP 94/78
[2020-10-20] MEDS: ZOLPIDEM TARTRATE 10 MG TABLET PO PRN (20:56)
[2020-10-21 01:28] VITALS: BP 139/94
[2020-10-21 08:11] VITALS: BP 112/81
[2020-10-21] MEDS: GABAPENTIN 300 MG CAPSULE PO SCH ×3 (09:19→16:57)
[2020-10-21] MEDS: TRIAMCINOLONE 0.1% 15 GM OINTMENT TP SCH ×4 (09:19→20:20)
[2020-10-21] MEDS: FOLIC ACID 1 MG TABLET PO SCH (09:19)
[2020-10-21] MEDS: DULoxetine HCL 60 MG CAPSULE PO SCH (09:19)
[2020-10-21] MEDS: MULTIVITAMINS WITH MINERALS, THERAPEUTIC TABLET PO SCH (09:19)
[2020-10-21] MEDS: THIAMINE 100 MG TABLET PO SCH (09:19)
[2020-10-21] MEDS: LORazepam 2 MG TABLET PO PRN ×2 (09:20→17:45)
[2020-10-21] MEDS: NICOTINE 21 MG/24 HOUR PATCH TD SCH (09:20)
[2020-10-21 16:31] VITALS: BP 116/87
[2020-10-21] MEDS: ZOLPIDEM TARTRATE 10 MG TABLET PO PRN (22:06)
[2020-10-22 00:47] VITALS: BP 120/83
[2020-10-22 08:07] VITALS: BP 109/72
[2020-10-22] MEDS: FOLIC ACID 1 MG TABLET PO SCH (08:33)
[2020-10-22] MEDS: GABAPENTIN 300 MG CAPSULE PO SCH ×3 (08:33→16:28)
[2020-10-22] MEDS: MULTIVITAMINS WITH MINERALS, THERAPEUTIC TABLET PO SCH (08:33)
[2020-10-22] MEDS: NICOTINE 21 MG/24 HOUR PATCH TD SCH (08:33)
[2020-10-22] MEDS: DULoxetine HCL 60 MG CAPSULE PO SCH (08:34)
[2020-10-22] MEDS: THIAMINE 100 MG TABLET PO SCH (08:34)
[2020-10-22] MEDS: TRIAMCINOLONE 0.1% 15 GM OINTMENT TP SCH ×4 (08:34→20:51)
[2020-10-22 16:35] VITALS: BP 128/88
[2020-10-23 00:14] VITALS: BP 140/93
[2020-10-23 08:30] VITALS: BP 118/71
[2020-10-23] MEDS: GABAPENTIN 300 MG CAPSULE PO SCH ×3 (08:54→16:53)
[2020-10-23] MEDS: FOLIC ACID 1 MG TABLET PO SCH (08:54)
[2020-10-23] MEDS: MULTIVITAMINS WITH MINERALS, THERAPEUTIC TABLET PO SCH (08:55)
[2020-10-23] MEDS: THIAMINE 100 MG TABLET PO SCH (08:55)
[2020-10-23] MEDS: DULoxetine HCL 60 MG CAPSULE PO SCH (08:55)
[2020-10-23] MEDS: NICOTINE 21 MG/24 HOUR PATCH TD SCH (08:56)
[2020-10-23] MEDS: TRIAMCINOLONE 0.1% 15 GM OINTMENT TP SCH ×4 (09:03→21:25)
[2020-10-23 16:05] VITALS: BP 144/88
[2020-10-23 19:29] VITALS: BP 130/82
[2020-10-23] MEDS ORDERED: MIRTAZAPINE 15 MG TABLET PO SCH (21:00)
[2020-10-24 00:21] VITALS: BP 120/87
[2020-10-24 08:49] VITALS: BP 132/84
[2020-10-24] MEDS: TRIAMCINOLONE 0.1% 15 GM OINTMENT TP SCH ×4 (09:00→20:25)
[2020-10-24] MEDS: FOLIC ACID 1 MG TABLET PO SCH (09:01)
[2020-10-24] MEDS: GABAPENTIN 300 MG CAPSULE PO SCH ×3 (09:01→16:08)
[2020-10-24] MEDS: MULTIVITAMINS WITH MINERALS, THERAPEUTIC TABLET PO SCH (09:01)
[2020-10-24] MEDS: THIAMINE 100 MG TABLET PO SCH (09:01)
[2020-10-24] MEDS: NICOTINE 21 MG/24 HOUR PATCH TD SCH (09:01)
[2020-10-24 16:07] VITALS: BP 118/72
[2020-10-24] MEDS ORDERED: MIRTAZAPINE 15 MG TABLET PO SCH (21:00)
[2020-10-25 06:31] VITALS: BP 110/68
[2020-10-25 08:09] VITALS: BP 110/67
[2020-10-25] MEDS: GABAPENTIN 300 MG CAPSULE PO SCH ×3 (08:24→16:10)
[2020-10-25] MEDS: THIAMINE 100 MG TABLET PO SCH (08:24)
[2020-10-25] MEDS: FOLIC ACID 1 MG TABLET PO SCH (08:24)
[2020-10-25] MEDS: MULTIVITAMINS WITH MINERALS, THERAPEUTIC TABLET PO SCH (08:24)
[2020-10-25] MEDS: NICOTINE 21 MG/24 HOUR PATCH TD SCH (08:25)
[2020-10-25] MEDS: TRIAMCINOLONE 0.1% 15 GM OINTMENT TP SCH ×3 (08:38→16:10)
[2020-10-25 16:20] VITALS: BP 124/85
[2020-10-25] MEDS ORDERED: TRIAMCINOLONE 0.1% 15 GM OINTMENT TP PRN (21:00)
[2020-10-26 00:55] VITALS: BP 137/74
[2020-10-26 08:08] LABS: BAND NEUTROPHILS % (MANUAL) 0 % (0-5)
[2020-10-26 08:10] VITALS: BP 125/68
[2020-10-26 08:18] LABS: COVID AG,FIA SOURCE NASOPHARYNGEAL
[2020-10-26 08:20] LABS: HEMATOCRIT 42.5 % (41-53); HEMOGLOBIN 14.1 g/dL (13.5-17.5); MEAN CORPUSCULAR HEMOGLOBIN 34.5 pg (26.0-34.0); MEAN CORPUSCULAR HGB CONC 33.2 G/dL (31.0-37.0); MEAN CORPUSCULAR VOLUME 104 fL (80-100); PLATELET COUNT (AUTO) 177 K/uL (150-450); RED BLOOD CELL COUNT(AUTO) 4.09 MIL/uL (4.50-5.90); RED CELL DISTRIBUTION WIDTH 12.5 % (11.5-14.5)
[2020-10-26 08:21] LABS: HEMOGLOBIN A1C 5.2 % (3.8-5.6)
[2020-10-26 08:41] LABS: ANION GAP 8 mmol/L (8-16); CALCIUM, TOTAL 9.2 mg/dL (8.8-10.5); CARBON DIOXIDE 30 mmol/L (22-29); CHLORIDE 105 mmol/L (98-107); CHOL/HDL RATIO 2.6 (4.2-7.3); CHOLESTEROL 127 mg/dL (131-200); CREATININE 0.89 mg/dL (0.60-1.30); GLOMERULAR FILTR. RATE CALC > 60 mL/min (>60); GLUCOSE,RANDOM 81 mg/dL (70-110); HDL CHOLESTEROL 49 mg/dL (40-60); LDL CHOL (CALC.) 70 mg/dL (0-130); PHOSPHORUS 4.2 mg/dL (2.5-4.9); POTASSIUM 4.9 mmol/L (3.5-5.1); SODIUM SERUM 143 mmol/L (136-145); THYROID STIMULATING HORMONE 3.29 uIU/mL (0.36-3.74); TRIGLYCERIDES 40 mg/dL (15-150); UREA NITROGEN, BLOOD 25 mg/dL (7-18)
[2020-10-26 08:42] VITALS: BP 121/71
[2020-10-26] MEDS: GABAPENTIN 300 MG CAPSULE PO SCH ×3 (08:50→15:57)
[2020-10-26] MEDS: NICOTINE 21 MG/24 HOUR PATCH TD SCH (08:50)
[2020-10-26] MEDS: THIAMINE 100 MG TABLET PO SCH (08:50)
[2020-10-26] MEDS: MULTIVITAMINS WITH MINERALS, THERAPEUTIC TABLET PO SCH (08:50)
[2020-10-26] MEDS: FOLIC ACID 1 MG TABLET PO SCH (08:50)
[2020-10-26] MEDS: FLUoxetine HCL 20 MG CAPSULE PO SCH (10:10)
[2020-10-26 13:07] LABS: EOSINOPHILS % (MANUAL) 3 % (1-6); LYMPHOCYTES % (MANUAL) 30 % (22-44); MONOCYTES % (MANUAL) 10 % (2-9); SEGMENTED NEUTROPHILS % 57 % (40-70)
[2020-10-26 16:14] VITALS: BP 119/80
[2020-10-27 01:33] VITALS: BP 130/92
[2020-10-27] MEDS: IBUPROFEN 600 MG TABLET PO PRN (06:01)
[2020-10-27] MEDS: MULTIVITAMINS WITH MINERALS, THERAPEUTIC TABLET PO SCH (08:31)
[2020-10-27] MEDS: FOLIC ACID 1 MG TABLET PO SCH (08:31)
[2020-10-27] MEDS: THIAMINE 100 MG TABLET PO SCH (08:31)
[2020-10-27] MEDS: NICOTINE 21 MG/24 HOUR PATCH TD SCH (08:31)
[2020-10-27] MEDS: FLUoxetine HCL 20 MG CAPSULE PO SCH (08:31)
[2020-10-27] MEDS: GABAPENTIN 300 MG CAPSULE PO SCH ×2 (08:31→12:44)
[2020-10-27 09:34] VITALS: BP 137/85
[2020-10-27] MEDS ORDERED: FLUO-191 PO (13:13)
== END 2020-10-27 13:56 | disposition home or self-care (01) | DRG 754 ==
LOC: EMS 00:03 → B3A 03:00 → B2S 10-25 17:30
PROVIDERS: ADMIT Psychiatry & Neurology Psychiatry; ATTEND Psychiatry & Neurology Psychiatry
DX: F32.9 Major depressive disorder, single episode, unspecified (principal); R45.851 Suicidal ideations; F10.10 Alcohol abuse, uncomplicated; Y90.9 Presence of alcohol in blood, level not specified; G47.00 Insomnia, unspecified; F41.9 Anxiety disorder, unspecified; K59.00 Constipation, unspecified; K21.9 Gastro-esophageal reflux disease without esophagitis; I10 Essential (primary) hypertension; F12.90 Cannabis use, unspecified, uncomplicated; F17.200 Nicotine dependence, unspecified, uncomplicated; Z87.442 Personal history of urinary calculi; B19.20 Unspecified viral hepatitis C without hepatic coma; N39.0 Urinary tract infection, site not specified; L20.9 Atopic dermatitis, unspecified; M19.90 Unspecified osteoarthritis, unspecified site; Z88.8 Allergy status to other drugs, medicaments and biological substances; Z59.0 Homelessness; Z20.822 Contact with and (suspected) exposure to COVID-19; Z28.21 Immunization not carried out because of patient refusal
CPT/HCPCS: 83036; 83735; 84100; 84443; 85007; 87086; 87426; 93005; 99285; G0480; J2060; J7030

== ENCOUNTER 2020-12-08 06:49 | Inpatient (IN) | payer MEDICAID ==
[~2020-12-08] VITALS: Ht 182.9 cm; Wt 85.0 kg
[~2020-12-08 06:49] MED LIST changes: -DULO30CA96 PO; +FLUO-191 PO
[2020-12-08] MEDS ORDERED: HALOPERIDOL 5 MG TABLET PO PRN (09:30)
[2020-12-08 16:17] VITALS: BP 106/70
[2020-12-09 03:44] VITALS: BP 123/77
[2020-12-09 07:20] LABS: BASOPHILS % (AUTO) 0.3 % (0.0-2.0); EOSINOPHILS % (AUTO) 2.8 % (1.0-6.0); HEMATOCRIT 43.8 % (41-53); HEMOGLOBIN 14.7 g/dL (13.5-17.5); LYMPHOCYTES # (AUTO) 1.6 K/uL (1.0-4.8); LYMPHOCYTES % (AUTO) 25.4 % (22.0-44.0); MEAN CORPUSCULAR HEMOGLOBIN 34.3 pg (26.0-34.0); MEAN CORPUSCULAR HGB CONC 33.5 G/dL (31.0-37.0); MEAN CORPUSCULAR VOLUME 103 fL (80-100); MONOCYTES # (AUTO) 0.5 K/uL (0.1-1.0); MONOCYTES % (AUTO) 8.1 % (2.0-9.0); NEUTROPHILS # (AUTO) 3.9 K/uL (1.8-7.7); NEUTROPHILS % (AUTO) 63.4 % (40.0-70.0); PLATELET COUNT (AUTO) 182 K/uL (150-450); RED BLOOD CELL COUNT(AUTO) 4.27 MIL/uL (4.50-5.90); RED CELL DISTRIBUTION WIDTH 14.4 % (11.5-14.5)
[2020-12-09] MEDS ORDERED: MAGNESIUM HYDROXIDE SUSPENSION 30 ML UDCUP PO PRN (07:30)
[2020-12-09] MEDS ORDERED: CloNIDine HCL 0.1 MG TABLET PO PRN (07:30)
[2020-12-09] MEDS ORDERED: MAG HYDROX/AL HYDROX/SIMETH ES 30 ML SUSPENSION UDCUP PO PRN (07:30)
[2020-12-09] MEDS ORDERED: DOCUSATE SODIUM 100 MG CAPSULE PO PRN (07:30)
[2020-12-09] MEDS ORDERED: LOPERAMIDE HCL 2 MG CAPSULE PO PRN (07:30)
[2020-12-09] MEDS ORDERED: PETROLATUM,WHITE 28 GM JELLY TP PRN (07:30)
[2020-12-09] MEDS ORDERED: GuaiFENesin/D-METHORPHAN [SUGAR-FREE] 200-20MG/10 ML SYRUP UDCUP PO PRN (07:30)
[2020-12-09 07:43] LABS: ALANINE AMINOTRANSFERASE 73 U/L (12-78); ALBUMIN 3.3 g/dL (3.4-5.0); ALKALINE PHOSPHATASE 63 U/L (46-116); ANION GAP 5 mmol/L (8-16); ASPARTATE AMINOTRANSFERASE 101 U/L (15-37); CALCIUM, TOTAL 8.7 mg/dL (8.8-10.5); CARBON DIOXIDE 29 mmol/L (22-29); CHLORIDE 103 mmol/L (98-107); CHOL/HDL RATIO 2.3 (4.2-7.3); CHOLESTEROL 150 mg/dL (131-200); CREATININE 0.96 mg/dL (0.60-1.30); FREE T4 (FREE THYROXINE) 0.86 ng/dL (0.76-1.46); GLOMERULAR FILTR. RATE CALC > 60 mL/min (>60); GLUCOSE,RANDOM 83 mg/dL (70-110); HDL CHOLESTEROL 64 mg/dL (40-60); LDL CHOL (CALC.) 78 mg/dL (0-130); POTASSIUM 3.9 mmol/L (3.5-5.1); SODIUM SERUM 137 mmol/L (136-145); THYROID STIMULATING HORMONE 1.46 uIU/mL (0.36-3.74); TOTAL PROTEIN, SERUM 7.4 g/dL (6.4-8.2); TRIGLYCERIDES 42 mg/dL (15-150); UREA NITROGEN, BLOOD 19 mg/dL (7-18)
[2020-12-09] MEDS: LORazepam 2 MG TABLET PO PRN (07:48)
[2020-12-09] MEDS: ALBUTEROL SULFATE HFA 90 MCG/PUFF 8 GM INHALER IH PRN (07:56)
[2020-12-09 08:34] VITALS: BP 117/70
[2020-12-09] MEDS: GABAPENTIN 300 MG CAPSULE PO SCH ×2 (13:15→16:59)
[2020-12-09] MEDS: ESCITALOPRAM OXALATE 10 MG TABLET PO SCH (13:15)
[2020-12-09 13:24] VITALS: BP 117/70
[2020-12-09 16:11] VITALS: BP 140/68
[2020-12-10 00:43] VITALS: BP 143/78
[2020-12-10] MEDS: LORazepam 2 MG TABLET PO PRN (03:01)
[2020-12-10 08:10] VITALS: BP 115/95
[2020-12-10] MEDS: GABAPENTIN 300 MG CAPSULE PO SCH ×3 (08:11→17:04)
[2020-12-10] MEDS: ALBUTEROL SULFATE HFA 90 MCG/PUFF 8 GM INHALER IH PRN ×2 (08:11→21:31)
[2020-12-10] MEDS: ESCITALOPRAM OXALATE 10 MG TABLET PO SCH (08:11)
[2020-12-10 16:13] VITALS: BP 116/60
[2020-12-10] MEDS: ZOLPIDEM TARTRATE 10 MG TABLET PO PRN (21:30)
[2020-12-11 00:18] VITALS: BP 124/78
[2020-12-11] MEDS: ALBUTEROL SULFATE HFA 90 MCG/PUFF 8 GM INHALER IH PRN (05:53)
[2020-12-11] MEDS: ESCITALOPRAM OXALATE 10 MG TABLET PO SCH (08:19)
[2020-12-11] MEDS: GABAPENTIN 300 MG CAPSULE PO SCH ×3 (08:19→16:34)
[2020-12-11 08:21] VITALS: BP 138/71
[2020-12-11] MEDS: LORazepam 2 MG TABLET PO PRN (08:47)
[2020-12-11] MEDS: NICOTINE 14 MG/24 HOUR PATCH TD PRN (08:48)
[2020-12-11 16:38] VITALS: BP 139/97
[2020-12-12 00:57] VITALS: BP 128/65
[2020-12-12 08:22] VITALS: BP 130/78
[2020-12-12] MEDS: ONDANSETRON HCL 4 MG TABLET PO PRN (08:32)
[2020-12-12] MEDS: GABAPENTIN 300 MG CAPSULE PO SCH ×3 (08:42→17:00)
[2020-12-12] MEDS: ESCITALOPRAM OXALATE 10 MG TABLET PO SCH (08:42)
[2020-12-12 16:11] VITALS: BP 124/79
[2020-12-12] MEDS: ACETAMINOPHEN 325 MG TABLET PO PRN (17:01)
[2020-12-12] MEDS: IBUPROFEN 400 MG TABLET PO PRN (17:27)
[2020-12-13] MEDS: ONDANSETRON HCL 4 MG TABLET PO PRN (00:04)
[2020-12-13] MEDS: LORazepam 2 MG TABLET PO PRN ×2 (00:04→08:41)
[2020-12-13 01:08] VITALS: BP 121/78
[2020-12-13 07:46] LABS: COVID AG,FIA SOURCE NASOPHARYNGEAL
[2020-12-13 08:13] VITALS: BP 136/75
[2020-12-13] MEDS: GABAPENTIN 300 MG CAPSULE PO SCH (08:34)
[2020-12-13] MEDS: ESCITALOPRAM OXALATE 10 MG TABLET PO SCH (08:34)
[2020-12-13] MEDS: GABAPENTIN 400 MG CAPSULE PO SCH ×2 (12:33→16:17)
[2020-12-13 16:15] VITALS: BP 118/72
[2020-12-14 06:32] VITALS: BP 111/61
[2020-12-14 08:15] VITALS: BP 113/77
[2020-12-14] MEDS: ESCITALOPRAM OXALATE 20 MG TABLET PO SCH (09:37)
[2020-12-14] MEDS: GABAPENTIN 400 MG CAPSULE PO SCH ×3 (09:37→16:19)
[2020-12-14] MEDS: IBUPROFEN 400 MG TABLET PO PRN (10:15)
[2020-12-14 10:18] VITALS: BP 123/77
[2020-12-14] MEDS: ACETAMINOPHEN 325 MG TABLET PO PRN (11:00)
[2020-12-14] MEDS: NICOTINE 14 MG/24 HOUR PATCH TD PRN (13:39)
[2020-12-14] MEDS: LORazepam 2 MG TABLET PO PRN (16:19)
[2020-12-14 16:47] VITALS: BP 120/84
[2020-12-15 01:49] VITALS: BP 145/92
[2020-12-15 08:32] VITALS: BP 130/75
[2020-12-15] MEDS: ESCITALOPRAM OXALATE 20 MG TABLET PO SCH (09:06)
[2020-12-15] MEDS: GABAPENTIN 400 MG CAPSULE PO SCH (09:06)
[2020-12-15] MEDS: GABAPENTIN 300 MG CAPSULE PO SCH (16:08)
[2020-12-15] MEDS: LORazepam 2 MG TABLET PO PRN (16:09)
[2020-12-15] MEDS: NICOTINE 21 MG/24 HOUR PATCH TD PRN (16:10)
[2020-12-15 16:35] VITALS: BP 145/83
[2020-12-16] MEDS: ZOLPIDEM TARTRATE 10 MG TABLET PO PRN (00:51)
[2020-12-16 01:19] VITALS: BP 138/93
[2020-12-16] MEDS: GABAPENTIN 300 MG CAPSULE PO SCH ×2 (08:47→16:53)
[2020-12-16] MEDS: ESCITALOPRAM OXALATE 20 MG TABLET PO SCH (08:47)
[2020-12-16 08:52] VITALS: BP 115/81
[2020-12-16] MEDS: LORazepam 2 MG TABLET PO PRN (15:10)
[2020-12-16] MEDS: NICOTINE 21 MG/24 HOUR PATCH TD PRN (15:12)
[2020-12-16 16:27] VITALS: BP 121/73
[2020-12-16] MEDS ORDERED: NICOTINE 14 MG/24 HOUR PATCH TD PRN (17:45)
[2020-12-17 05:30] VITALS: BP 149/85
[2020-12-17] MEDS: ESCITALOPRAM OXALATE 20 MG TABLET PO SCH (08:08)
[2020-12-17] MEDS: GABAPENTIN 300 MG CAPSULE PO SCH ×2 (08:08→16:32)
[2020-12-17 08:54] VITALS: BP 135/95
[2020-12-17 16:19] VITALS: BP 119/85
[2020-12-18 00:14] VITALS: BP 138/94
[2020-12-18] MEDS: LORazepam 2 MG TABLET PO PRN (00:15)
[2020-12-18] MEDS: GABAPENTIN 300 MG CAPSULE PO SCH ×2 (08:23→16:38)
[2020-12-18 08:30] VITALS: BP 127/78
[2020-12-18] MEDS: ESCITALOPRAM OXALATE 20 MG TABLET PO SCH (09:46)
[2020-12-18 16:17] VITALS: BP 115/60
[2020-12-19 04:24] VITALS: BP 126/89
[2020-12-19] MEDS: LORazepam 2 MG TABLET PO PRN ×2 (04:27→21:43)
[2020-12-19] MEDS: GABAPENTIN 300 MG CAPSULE PO SCH ×2 (08:10→16:03)
[2020-12-19] MEDS: ESCITALOPRAM OXALATE 20 MG TABLET PO SCH (08:10)
[2020-12-19 08:15] VITALS: BP 110/65
[2020-12-19 16:22] VITALS: BP 140/80
[2020-12-20 00:44] VITALS: BP 131/78
[2020-12-20] MEDS: GABAPENTIN 300 MG CAPSULE PO SCH (08:29)
[2020-12-20] MEDS: ESCITALOPRAM OXALATE 20 MG TABLET PO SCH (08:29)
[2020-12-20 08:37] LABS: COVID AG,FIA SOURCE NASOPHARYNGEAL
[2020-12-20 08:47] VITALS: BP 138/86
[2020-12-20 16:19] VITALS: BP 136/82
[2020-12-20] MEDS ORDERED: GABAPENTIN 300 MG CAPSULE PO ONE (17:00)
[2020-12-20] MEDS ORDERED: FAMOTIDINE 20 MG TABLET PO ONE (22:30)
[2020-12-20] MEDS ORDERED: PredniSONE 20 MG TABLET PO ONE (22:30)
[2020-12-20] MEDS ORDERED: DiphenhydrAMINE HCL 25 MG CAPSULE PO ONE (22:30)
[2020-12-20] MEDS: LORazepam 2 MG TABLET PO PRN (23:37)
[2020-12-21] VITALS: BP 126/80
[2020-12-21] MEDS: ESCITALOPRAM OXALATE 20 MG TABLET PO SCH (08:56)
[2020-12-21] MEDS: GABAPENTIN 400 MG CAPSULE PO SCH ×3 (08:56→16:29)
[2020-12-21 09:11] VITALS: BP 127/70
[2020-12-21 16:19] VITALS: BP 121/82
[2020-12-22] VITALS: BP 126/81
[2020-12-22] MEDS ORDERED: ESCI20TA87 PO (07:44)
[2020-12-22] MEDS ORDERED: GABA-1201 PO (07:45)
[2020-12-22] MEDS: ESCITALOPRAM OXALATE 20 MG TABLET PO SCH (08:18)
[2020-12-22] MEDS: GABAPENTIN 400 MG CAPSULE PO SCH (08:18)
[2020-12-22 09:02] VITALS: BP 100/73
== END 2020-12-22 10:15 | disposition home or self-care (01) | DRG 751 ==
LOC: B2S 11:50
PROVIDERS: ADMIT Psychiatry & Neurology Child & Adolescent Psychiatry; ATTEND Psychiatry & Neurology Child & Adolescent Psychiatry
DX: F33.2 Major depressive disorder, recurrent severe without psychotic features (principal); R45.851 Suicidal ideations; D64.9 Anemia, unspecified; F15.10 Other stimulant abuse, uncomplicated; F41.9 Anxiety disorder, unspecified; B19.20 Unspecified viral hepatitis C without hepatic coma; M19.90 Unspecified osteoarthritis, unspecified site; Z20.822 Contact with and (suspected) exposure to COVID-19; Z59.0 Homelessness; Z87.891 Personal history of nicotine dependence; Z91.5 Personal history of self-harm; Z72.89 Other problems related to lifestyle
CPT/HCPCS: 80053; 80061; 83036; 84436; 84439; 84443; 85025; 87426; G0480; J3535; Q0162

== ENCOUNTER 2021-01-08 01:59 | Emergency (ER) | payer MEDICAID, OTHER ==
[~2021-01-08] VITALS: Ht 182.9 cm; Wt 90.9 kg
[~2021-01-08 01:59] MED LIST changes: +ESCI20TA87 PO; -FLUO-191 PO; -GABA-1181 PO; +GABA-1201 PO
[2021-01-08 02:25] LABS: BASOPHILS % (AUTO) 0.8 % (0.0-2.0); EOSINOPHILS % (AUTO) 5.7 % (1.0-6.0); HEMATOCRIT 39.1 % (41-53); HEMOGLOBIN 13.2 g/dL (13.5-17.5); LYMPHOCYTES # (AUTO) 1.8 K/uL (1.0-4.8); LYMPHOCYTES % (AUTO) 31.7 % (22.0-44.0); MEAN CORPUSCULAR HEMOGLOBIN 34.2 pg (26.0-34.0); MEAN CORPUSCULAR HGB CONC 33.7 G/dL (31.0-37.0); MEAN CORPUSCULAR VOLUME 102 fL (80-100); MONOCYTES # (AUTO) 0.5 K/uL (0.1-1.0); MONOCYTES % (AUTO) 9.2 % (2.0-9.0); NEUTROPHILS % (AUTO) 52.6 % (40.0-70.0); PLATELET COUNT (AUTO) 185 K/uL (150-450); RED BLOOD CELL COUNT(AUTO) 3.86 MIL/uL (4.50-5.90); RED CELL DISTRIBUTION WIDTH 13.9 % (11.5-14.5)
[2021-01-08 02:49] VITALS: BP 117/69
[2021-01-08 02:57] LABS: ANION GAP 9 mmol/L (8-16); CALCIUM, TOTAL 9.5 mg/dL (8.8-10.5); CARBON DIOXIDE 29 mmol/L (22-29); CHLORIDE 105 mmol/L (98-107); CREATININE 0.95 mg/dL (0.60-1.30); GLOMERULAR FILTR. RATE CALC > 60 mL/min (>60); GLUCOSE,RANDOM 101 mg/dL (70-110); POTASSIUM 3.8 mmol/L (3.5-5.1); SODIUM SERUM 143 mmol/L (136-145); UREA NITROGEN, BLOOD 23 mg/dL (7-18)
[2021-01-08 03:03] LABS: ALANINE AMINOTRANSFERASE 50 U/L (12-78); ALBUMIN 3.4 g/dL (3.4-5.0); ALKALINE PHOSPHATASE 59 U/L (46-116); ASPARTATE AMINOTRANSFERASE 53 U/L (15-37); BILIRUBIN,TOTAL 0.2 mg/dL (0.1-1.0)
== END 2021-01-08 03:30 | disposition left against medical advice (07) ==
LOC: EMS 02:00
DX: R45.851 Suicidal ideations (principal); F15.10 Other stimulant abuse, uncomplicated; F41.9 Anxiety disorder, unspecified; F32.9 Major depressive disorder, single episode, unspecified; F17.210 Nicotine dependence, cigarettes, uncomplicated; Z59.0 Homelessness; Z88.5 Allergy status to narcotic agent; Z88.8 Allergy status to other drugs, medicaments and biological substances; Z91.018 Allergy to other foods
CPT/HCPCS: 36415; 80053; 85025; 99284; G0480